=== PATIENT | male | born 1930 | race African-American/Black ===

== ENCOUNTER 2019-08-14 12:41 | Inpatient (IN) | payer OTHER ==
[~2019-08-14] VITALS: Ht 193 cm; Wt 98.9 kg
--- NOTE | ~2019-08-14 | H ---
[facility] [place] [address] HISTORY AND PHYSICAL Name: HEATHER SHAW Room #: 353-P ADM IN M.R.#: [id number] Admission: 08/14/19 Attend Phys: Tete Marquez MD Discharge: Date of : [birth year] Report #: [id number] THIS REPORT FOR: //name// CC: ANEL physician/PCP Tete BENSON PCP DATE OF SERVICE: 08/14/2019 CHIEF COMPLAINT: Swelling in the legs. HISTORY OF PRESENT ILLNESS: The patient is a very pleasant 89-year-old gentleman who started having bilateral lower extremity pain for last couple of days and swelling started to be getting worse and so patient's son took him to [facility] yesterday and the patient was diagnosed with bilateral lower extremity DVT and was started on heparin; however, because the hospital was full and he had to wait in the Emergency Room for 9 hours, the patient got very upset and left the hospital and went home to sleep. His son talked him into coming to the hospital and getting the workup done again and the patient is brought here. He is very pleasant, however, is not very keen on giving much of the history and informs his daughter to update me about what has been going on. The patient denied any hematuria, hematochezia, melena, cough, hemoptysis. Denies any recent weight loss or weight gain. The patient informs me that he has not seen a physician for greater than 7-10 years, last time he saw anyone was definitely in 1998, then he was admitted to [facility] and had cardiac arrest and apparently was told to have coronary artery disease. However, this undermines that 7 years ago, he did have a blood clot and he was treated for that as well. The patient was told at [facility] that he had bilateral lower extremity DVT as well as urinary tract infection. The patient comes here for further management and he informs me that he is going to stay in the hospital until his treatment is completely done. He has had hot flashes, fever or chills, but no dizziness, lightheadedness, no nausea or vomiting or diarrhea. The patient denies any weakness or numbness of any part of the body. He otherwise is feeling fine and other than leg swelling and dysuria, frequency, urgency of urination and low-grade fever and sweats or feeling hot, the patient does not have any other symptoms. PAST MEDICAL HISTORY: Significant for: 1. Coronary artery disease. 2. Cardiac arrest in 1996. 3. Dementia. 4. Prior history of DVT. 5. Lack of medical care. 6. Possible stroke in the past. ALLERGIES: The patient [place] [address] HISTORY AND PHYSICAL Name: HEATHER SHAW Room #: 353-P ADM IN M.R.#: [id number] Admission: 08/14/19 Attend Phys: Tete Marquez MD Discharge: Date of : [birth year] Report #: [id number] CURRENT MEDICATIONS: None. His emergency contact is his son, Dean Navarrete and number is [phone]. PERSONAL AND SOCIAL HISTORY: The patient smokes about 1-2 cigarettes per day. According to the son, the patient himself informs me that he started smoking at 18 years of age and had maybe half pack per day or less, but did not consider himself as a heavy smoker. He did drink alcohol, but he now takes it rarely. Denies any recreational drug use and he lives at home alone and wishes to be full code. PAST SURGICAL HISTORY: The patient has had no surgeries in the past. FAMILY HISTORY: The patient's both sides of the family. Father and mother has positive history of diabetes, hypertension, coronary artery disease and blood clots. REVIEW OF SYSTEMS: Ten point review of system was done. Please see HPI above. PHYSICAL EXAMINATION: VITAL SIGNS: Temperature 36.3, heart rate 61, respirations 18, blood pressure 171/107 and pulse oximeter 100% on room air. GENERAL: Lean and thin, tall gentleman who is able to transfer himself from bed to chair and chair to bed without any assistance and is in no distress at all. HEENT: Normocephalic, atraumatic. Pupils are equally round and reactive to light. Extraocular muscle movements are intact. Conjunctivae are clear. Sclerae are nonicteric. The patient is wearing dark sunglasses, which he can easily take off once the lights are turned off, but absolutely denies any photophobia and he always has had sunglasses on all the time. Oropharynx clear. Uvula midline. Angle of mouth symmetrical. NECK: Supple. HEART: S1, S2, regular. No murmur, no S3, no S4. LUNGS: Clear to auscultation bilaterally with distant breath sounds noted bilaterally, symmetrical chest expansion present. The patient has no chest wall tenderness noted. ABDOMEN: Soft, nontender, nondistended, normal active bowel sounds. EXTREMITIES: 1+ pitting edema noted both lower extremities. NEUROLOGIC: Nonfocal. LABORATORY DATA: WBC is 3800, hemoglobin 11.5, hematocrit 37.2 and platelet count is 124,000 low. PTT after in the ER the patient received heparin is 91.2. Chemistries indicate sodium 138, potassium 3.6, chloride 102, bicarbonate 29, anion gap 7, BUN 28, creatinine 1.4, GFR 58, glucose 126, calcium 9.2, total bilirubin 0.4, AST 16, ALT 18, alkaline phosphatase 60. Troponin less than 0.06. Urinalysis clear with 6-15 wbc's per high power field with trace blood, [facility] [address] [place] [address] HISTORY AND PHYSICAL Name: VALERIAHEATHER Room #: 353-P ADM IN M.R.#: [id number] Admission: 08/14/19 Attend Phys: Tete Marquez MD Discharge: Date of : [birth year] Report #: [id number] negative nitrites. The patient does have 1+ leukocyte esterase positive and 1-9 bacteria seen. RADIOLOGICAL STUDIES: The patient had CTA chest PE protocol. On T12 vertebral body, the patient has a large ovoid sclerotic lesion, measuring 2.1 cm that is suspicious for metastatic disease and there are 2 additional small sclerotic foci present in the left 5th and right 7th rib as well. Additional upper abdominal findings include cholelithiasis and colonic diverticulosis, no CT evidence of pulmonary embolism or acute cardiopulmonary was noted. Ultrasound of the bilateral lower extremity was done, which indicates bilateral leg partially occlusive thrombus in the distal external iliac vein, common femoral vein, partially occlusive thrombus in the left mid to distal superficial vein and popliteal vein noted. A chest x-ray was done with mild bibasilar non-consolidative interstitial infiltrates or early pneumonitis or interstitial edema and normal heart size noted. ASSESSMENT AND PLAN: 1. New onset bilateral lower extremity deep venous thrombosis. The patient has received heparin bolus in the Emergency Room and drip has been started in the ER. I plan to continue the heparin overnight. We will monitor platelet counts closely as the patient's platelet count is 124 only and we will go ahead and consult hog confinement system manager/oncologist as the patient had a second episode of DVT. There has not been any recent travel or surgery or any inciting event; however, the patient has received Heparin for 2 days in a row, so we will not be able to do a hypercoagulable workup except genetic studies and also the patient has T12 sclerotic lesion. We will go ahead and get CT scan of abdomen and pelvis for looking for primary. 2. Urinary tract infection. The patient has no known drug allergies, so we will go ahead and start Rocephin for a urinary tract infection. We will go ahead and check PSA even though the patient is 89 years old, since we are doing metastatic disease workup, we will look for primary. Also discussed with the patient about if he has gotten any colonoscopy and he is unable to recall if he had any. The patient does not really like going seeing the doctors and therefore has multiple. 3. Microscopic hematuria, likely associated with urinary tract infection, but we will go ahead and get renal ultrasound as a part of workup and will do sed rate, C-reactive protein and serum protein electrophoresis. Plan of care was discussed with the patient and his son and the patient wishes to be full code. Order has been written. 4. Benign prostatic hypertrophy. Continue Flomax and Proscar. 5. Coronary artery disease. The patient has had cardiac reflex. We will go ahead and get an echocardiogram tomorrow morning as the patient's chest x-ray indicates interstitial pneumonitis versus pulmonary edema. [facility] [address] [place] [address] HISTORY AND PHYSICAL Name: HEATHER SHAW Room #: 353-P ADM IN M.R.#: [id number] Admission: 08/14/19 Attend Phys: Tete Marquez MD Discharge: Date of : [birth year] Report #: [id number] 6. Cholelithiasis, asymptomatic. If patient does develop symptoms, then we would go ahead. 7. Questionable history of cerebrovascular accident. The patient does not have any residual neurological deficit, but apparently has been told to have had stroke before. The patient has review of systems negative for such symptoms; however, we will consider getting an MRI of the brain if the patient has any symptoms. 8. Thrombocytopenia. Heparin may not be the best choice of drug; however, before starting Eliquis or Xarelto, it would be advisable to get metastatic carcinoma workup completed in case we need to get the interventional radiologist, who did the biopsy; however, we will wait for the feedback from Hematology/Oncology team. By: [id number] Tete Marquez MD /nt
[2019-08-14 12:44] VITALS: BP 121/67; BP 181/51
[2019-08-14 13:27] LABS: URINE BILIRUBIN NEGATIVE (Negative); URINE BLOOD TRACE (Negative); URINE CLARITY CLEAR; URINE COLOR YELLOW; URINE GLUCOSE-RANDOM* NEGATIVE (Negative); URINE KETONES NEGATIVE (Negative); URINE NITRITE-REFLEX NEGATIVE (Negative); URINE PROTEIN (DIPSTICK) NEGATIVE (Negative); URINE SPECIFIC GRAVITY >= 1.030 (1.005-1.035); URINE UROBILINOGEN 0.2 E.U./dl (0.2-1.0)
[2019-08-14 13:28] LABS: URINE LEUKOCYTES-REFLEX 1+ (Negative)
[2019-08-14 13:37] LABS: BACTERIA-REFLEX 1-9 Few /HPF (None Seen); CASTS None Seen /LPF (None Seen); CRYSTALS None Seen /LPF (None Seen); SQUAMOUS None Seen /LPF (0-3); URINE RBC None Seen /HPF (0-2); URINE WBC-REFLEX 6-15 Few /HPF (0-5)
[2019-08-14 13:43] LABS: HEMOGLOBIN 11.9 gm/dL (14.0-18.0); RDW 15.1 % (10.5-14.5); WBC 3.1 thou/uL (4.0-11.0)
[2019-08-14 13:45] LABS: HEMATOCRIT 38.7 % (42.0-52.0); MCH 22.5 pg (26.0-34.0); MCHC 30.8 g/dL (28.0-37.0); MCV 73.2 fL (80.0-100.0); PLATELET COUNT 134 thou/uL (150-400); RBC 5.29 mil/uL (4.50-6.00)
[2019-08-14 13:52] LABS: CALCIUM 9.2 mg/dL (8.5-10.1); CREATININE 1.4 mg/dL (0.7-1.3); POTASSIUM 3.6 mmol/L (3.5-5.1)
[2019-08-14 13:57] LABS: INR 1.1
[2019-08-14 13:58] LABS: ALBUMIN 3.8 g/dL (3.4-5.0); TOTAL BILIRUBIN 0.4 mg/dL (<0.1-1.0); TOTAL PROTEIN 8.1 g/dL (6.4-8.2)
[2019-08-14 14:33] LABS: ABSOLUTE NEUTROPHILS 1.7 thou/uL (1.4-8.2); POLYCHROMASIA OCCASIONAL
[2019-08-14 14:34] LABS: ANISOCYTOSIS 1+; HYPOCHROMASIA 1+; MICROCYTES 1+
--- NOTE | 2019-08-14 16:32 | EKG ---
[facility] [place] [address] ELECTROCARDIOGRAM REPORT Name: HEATHER SHAW Room #: 170-4 ADM IN M.R.#: [id number] Admission: 08/14/19 Attend Phys: Tete Marquez MD Discharge: Date of : [birth year] Report #: [id number] THIS REPORT FOR: cc: NO FAMILY PHYSICIAN or PCP FAM - No family physician/PCP Twan Haji MD ~ THIS REPORT FOR: //name// [facility] ED Test Date: 2019-08-14 Test Time: 13:26:08 Pat Name: HEATHER SHAW Department: Room: [facility] Gender: M Whipper: delmy : 1930 Requested By: Axel Castillo Order Number: [id number] MD: Twan Haji Measurements Intervals Alborn Rate: 67 P: 70 CT: 239 QRS: -49 QRSD: 108 T: -50 QT: 449 QTc: 474 Interpretive Statements Sinus rhythm Multiform ventricular premature complexes Prolonged CT interval RSR' in V1 or V2, right VCD or RVH Inferior infarct, age indeterminate No previous ECG available for comparison Electronically Signed On 08-14-2019 16:31:28 GREEN BUILDING DESIGN SPECIALIST by Twan Haji [email or web address] <ELECTRONICALLY SIGNED> By: Twan Haji MD 08/14/19 1631 [id number] Twan Haji MD /EPI
[2019-08-14 17:10] VITALS: BP 168/79
[2019-08-14 17:29] VITALS: BP 177/107
--- NOTE | 2019-08-14 18:16 | NUR ---
ASSUMED CARE OF PT ON ARRIVAL TO UNIT AT APPROX 1750. PT AOX3 IN NO ACUTE DISTRESS. FAMILY AT BEDSIDE. DENIES PAIN TO BLE. REPORTS URINARY FREQUENCY THAT HAS BEEN GOING ON FOR YEARS. DENIES OTHER SYMPTOMS. HEPARIN GTT INFUSING PER ORDER. LAB DRAW SCHEDULED FOR 1800. FALL PRECAUTIONS IN PLACE.
[2019-08-14 18:35] LABS: HEMATOCRIT 37.2 % (42.0-52.0); HEMOGLOBIN 11.5 gm/dL (14.0-18.0); MCH 22.7 pg (26.0-34.0); MCV 73.1 fL (80.0-100.0); RBC 5.09 mil/uL (4.50-6.00); RDW 15.4 % (10.5-14.5); WBC 3.8 thou/uL (4.0-11.0)
[2019-08-14 19:35] VITALS: BP 143/61
[2019-08-15 00:44] LABS: HEMATOCRIT 36.9 % (42.0-52.0); HEMOGLOBIN 11.6 gm/dL (14.0-18.0); MCH 22.8 pg (26.0-34.0); MCHC 31.3 g/dL (28.0-37.0); MCV 72.7 fL (80.0-100.0); RBC 5.08 mil/uL (4.50-6.00); WBC 3.6 thou/uL (4.0-11.0)
[2019-08-15 03:54] LABS: HEMATOCRIT 36.6 % (42.0-52.0); HEMOGLOBIN 11.3 gm/dL (14.0-18.0); MCH 22.6 pg (26.0-34.0); MCHC 30.9 g/dL (28.0-37.0); MCV 73.2 fL (80.0-100.0); PLATELET COUNT 118 thou/uL (150-400); RBC 5.01 mil/uL (4.50-6.00); RDW 14.8 % (10.5-14.5); WBC 3.5 thou/uL (4.0-11.0)
[2019-08-15 04:00] LABS: ALBUMIN 3.4 g/dL (3.4-5.0); CALCIUM 8.2 mg/dL (8.5-10.1); CREATININE 1.2 mg/dL (0.7-1.3); PHOSPHORUS 3.4 mg/dL (2.5-4.9); POTASSIUM 4.1 mmol/L (3.5-5.1); TOTAL BILIRUBIN 0.6 mg/dL (<0.1-1.0); TOTAL PROTEIN 7.2 g/dL (6.4-8.2)
[2019-08-15 04:32] VITALS: BP 159/84
[2019-08-15 05:26] LABS: ANISOCYTOSIS 1+; HYPOCHROMASIA 2+; MICROCYTES 2+; PLATELET ESTIMATE DECREASED; POIKILOCYTOSIS 1+; SCHISTOCYTES 1+; TARGET CELLS 1+
[2019-08-15 07:46] VITALS: BP 156/70
--- NOTE | 2019-08-15 09:00 | 2DMMODE ---
[facility] [place] [address] 2 D/M-MODE ECHOCARDIOGRAM Name: HEATHER SHAW Room #: 353-P ADM IN M.R.#: [id number] Admission: 08/14/19 Attend Phys: Tete Marquez MD Discharge: Date of : [birth year] Report #: [id number] THIS REPORT FOR: cc: NO FAMILY PHYSICIAN or PCP FAM - No family physician/PCP Candido Sanchez MD [facility] ~ APPROVED REPORT Study performed: 08/15/2019 08:17:57 EXAM: Comprehensive 2D, Doppler, and color-flow Echocardiogram Patient Location: Echo lab Room #: 353 Status: routine BSA: 2.12 HR: 56 bpm BP: 159/84 mmHg Rhythm: NSR Indications Question pulmonary edema on Xray. Hx: CAD. 2D Dimensions RVDd: 40.36 mm IVSd: 10.42 (7-11mm) LVOT Diam: 24.99 (18-24mm) LVDd: 53.51 mm PWd: 10.82 (7-11mm) Ascending Ao: 40.38 (22-36mm) LVDs: 42.80 (25-40mm) Aortic Root: 36.50 mm Volumes Left Atrial Volume (Systole) Single Plane 4CH: 77.98 mL Single Plane 2CH: 85.80 mL LA ESV Index: 45.00 mL/m2 Aortic Valve AoV Peak Jersey.: 1.10 m/s AO Peak Gr.: 4.88 mmHg LVOT Max P.23 mmHg LVOT Max V: 0.55 m/s VITALIY Vmax: 2.46 cm2 Mitral Valve E/A Ratio: 1.[address] [facility] [address] [place] [address] 2 D/M-MODE ECHOCARDIOGRAM Name: HEATHER SHAW Room #: 353-P [facility] IN .R.#: [id number] Admission: 08/14/19 Attend Phys: Tete Marquez, Discharge: Date of : [birth year] Report #: [id number] MV Decel. Time: 277.28 ms MV E Max Jersey.: 0.49 m/s MV A Jersey.: 0.34 m/s MV PHT: 80.41 ms IVRT: 93.43 ms Pulmonary Valve PV Peak [place].: 0.86 m/s PV Peak Gr.: 2.93 mmHg Pulmonary Vein P Vein S: 0.39 m/s P Vein D: 0.51 m/s P Vein S/D Ratio: 0.76 Tricuspid Valve TR Peak Jersey.: 3.20 m/s RAP Estimate: 5.00 mmHg TR Peak Gr.: 41.00 mmHg PA Pressure: 56.00 mmHg Left Ventricle The left ventricle is normal size. There is global hypokinesis of the left ventricle. There is normal left ventricular wall thickness. Left ventricular systolic function is moderately decreased. LVEF is 35-40%. Moderate diastolic dysfunction is present. Right Ventricle The right ventricle is normal size. The right ventricular systolic function is normal. Atria Left atrium is moderately dilated. Right atrium is mildly dilated. Aortic Valve The aortic valve is normal in structure. Trace aortic regurgitation. There is no aortic valvular stenosis. Mitral Valve The mitral valve is normal in structure. Mild mitral regurgitation. No evidence of mitral valve stenosis. Tricuspid Valve The tricuspid valve is normal in structure. Mild to moderate tricuspid regurgitation. Estimated PAP is 55-60mmHg. Pulmonic Valve [facility] [address] [place] [address] 2 D/M-MODE ECHOCARDIOGRAM Name: SHARIFASHLEIGHHEATHER Room #: 353-P [facility] IN M.R.#: [id number] Admission: 08/14/19 Attend Phys: Tete Marquez, Discharge: Date of : [birth year] Report #: [id number] The pulmonary valve is normal in structure. Moderate pulmonic regurgitation. Great Vessels The aortic root is normal in size. 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 IVC is normal in size and collapses >50% with inspiration. Pericardium There is no pericardial effusion. <Conclusion> Left ventricular systolic function is moderately decreased. There is global hypokinesis of the left ventricle. LVEF is 35-40%. Moderate diastolic dysfunction is present. Left atrium is moderately dilated. The aortic valve is normal in structure. Trace aortic regurgitation. The mitral valve is normal in structure. Mild mitral regurgitation. Mild to moderate tricuspid regurgitation. Estimated pulmonary artery pressure of 55-60mmHg. 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 There is no pericardial effusion. <ELECTRONICALLY SIGNED> By: Candido Sanchez MD, FACC 08/15/19858 8 8 Candido Sanchez MD, FACC /INF
--- NOTE | 2019-08-15 15:28 | NUR ---
INITIAL ASSESSMENT: SW reviewed chart and spoke with nursing and attending physician. Pt was admitted from home due to DVT. Pt is currently on heparin. Pt was at [facility] yesteray and did not wait to be admitted. Pt with T12 lesion. Hem/onc consulted. SW met with pt at bedside. Introduced role of SW. Pt is alert/orientated. Pt reports he lives at home with family. Prior to admission, pt was using a cane for ambulation. Pt has 5-6 steps to enter the home. Pt states that he does not have to navigate the steps inside his home. Pt's family will assist him as needed. Pt states his plan is to go home when medically stable. Pt does not have a PCP and declines list of providers for review. SW is following to assist as needed with discharge planning.
[2019-08-15 15:41] VITALS: BP 156/89
--- NOTE | 2019-08-15 19:33 | NUR ---
PATIENT ATTEMPTED TO LEAVE UNIT STATING HE HAS TO GO HOME AND TAKE CARE OF A FEW THINGS. STATES SOMEONE MAY TRY TO BREAK INTO HIS HOUSE AND HE HAS TO GO AND CARE OF IT. HE IS ALERT ORIENTED X2. USES URINAL. FAMILY CALLED AND THEY STATE THEY WILL BE HERE TO SEE FATHER. BUT NEVER SHOWED UP.
[2019-08-15 19:50] VITALS: BP 181/89
--- NOTE | 2019-08-16 03:52 | NUR ---
ASSUMED CARE OF PATIENT AT 1900. VSS, AFEBRILE. VERY IMPULSIVE, DOES NOT CALL OUT. JUMPS OUT OF BED, STATES URINARY FREQUENCY. PT REMOVED IV. NEW ONE PLACED. DENIES PAIN, SOA OR N/V. IS VERY FORGETFUL. WORKING TOWARDS POC GOALS.
[2019-08-16 04:38] VITALS: BP 177/89
[2019-08-16 08:00] VITALS: BP 167/87
[2019-08-16 08:45] LABS: ABSOLUTE NEUTROPHILS 1.6 thou/uL (1.4-8.2); WBC 3.7 thou/uL (4.0-11.0)
[2019-08-16 08:47] LABS: BASOPHILS 1.7 % (0.0-2.0); HEMATOCRIT 41.8 % (42.0-52.0); HEMOGLOBIN 13.1 gm/dL (14.0-18.0); LYMPHOCYTES 41.9 % (24.0-44.0); MCH 22.9 pg (26.0-34.0); MCHC 31.3 g/dL (28.0-37.0); MCV 73.1 fL (80.0-100.0); MONOCYTES 9.9 % (1.0-8.0); POLYS 42.5 % (36.0-66.0); RBC 5.72 mil/uL (4.50-6.00)
[2019-08-16 08:58] LABS: ALBUMIN 4.2 g/dL (3.4-5.0); CALCIUM 9.5 mg/dL (8.5-10.1); CREATININE 1.3 mg/dL (0.7-1.3); POTASSIUM 3.9 mmol/L (3.5-5.1); TOTAL BILIRUBIN 0.6 mg/dL (<0.1-1.0); TOTAL PROTEIN 8.9 g/dL (6.4-8.2)
[2019-08-16 09:11] LABS: ANISOCYTOSIS 1+; HYPOCHROMASIA 1+; MICROCYTES 1+; PLATELET COUNT 139 thou/uL (150-400); POIKILOCYTOSIS 1+; TARGET CELLS FEW; TEARDROPS OCCASIONAL
[2019-08-16 09:12] LABS: LARGE PLATELETS OCCASIONAL; PLATELET ESTIMATE SLIGHTLY DECREASED
[2019-08-16 12:04] VITALS: BP 167/87
--- NOTE | 2019-08-16 15:22 | NUR ---
PATIENT REMAIN AGITATIVE AND KEEPS ATTEMPTING TO LEAVE. HE PUT ON HIS CLOTHS, AND SHOES BY HIMSELF. HE ALSO ATE BREAKFAST AND LUNCH INDEPENDENTLY. PATIENT HOWEVER IS QUITE CONFUSED. HE DOES NOT REMEMBER WHAT DAY IT IS. HE DOES NOT REMEMBER WHO THE PRESIDENT IS OR WHAT TIME IT IS. FAMILY HERE AND NOT HELPING. HE IGNORS THEM AND TRY TO LEAVE ANYWAYS. SECURITY CALLED AND HE WILL TEMPORARY GO BACK TO BED. HE KEEPS ON TAKING OFF HIS IV AND HENCE HEPARINE NOT INFUSING DIRECTED. DR WESLEY NOTIFIED. HE WILL BE DISCHARGE HOME AT THIS TIME PER FAMILY WISHES. WILL CONT WIHT PLNA OF CARE.
[2019-08-16] MEDS ORDERED: FLOMAX0.4 MG PO (15:54)
[2019-08-16] MEDS ORDERED: ELIQUIS5 MG PO (15:54)
[2019-08-16] MEDS ORDERED: PEPCID20 MG PO (15:55)
[2019-08-16] MEDS ORDERED: HYDRALAZINE 10M10 MG PO (15:56)
[2019-08-16 16:21] VITALS: BP 167/87
[2019-08-18 15:12] LABS: GLOBULIN TOTAL 3.3 g/dL (2.2-3.9); M-SPIKE Not Observed g/dL (Not Observed)
== END 2019-08-16 17:06 | disposition home or self-care (01) | DRG 300 ==
LOC: ER 12:41 → 3W 14:43 → EROBS 14:43 → 3W 17:10
PROVIDERS: Physician Assistant; ADMIT Internal Medicine
DX: I82.423 Acute embolism and thrombosis of iliac vein, bilateral (principal); N39.0 Urinary tract infection, site not specified; N17.9 Acute kidney failure, unspecified; D61.818 Other pancytopenia; I82.413 Acute embolism and thrombosis of femoral vein, bilateral; F03.90 Unspecified dementia, unspecified severity, without behavioral disturbance, psychotic disturbance, mood disturbance, and anxiety; I25.10 Atherosclerotic heart disease of native coronary artery without angina pectoris; R31.29 Other microscopic hematuria; K80.20 Calculus of gallbladder without cholecystitis without obstruction; F17.210 Nicotine dependence, cigarettes, uncomplicated; R29.6 Repeated falls; G47.00 Insomnia, unspecified; G54.3 Thoracic root disorders, not elsewhere classified; N40.1 Benign prostatic hyperplasia with lower urinary tract symptoms; R33.8 Other retention of urine; Z86.74 Personal history of sudden cardiac arrest; Z86.73 Personal history of transient ischemic attack (TIA), and cerebral infarction without residual deficits; Z82.49 Family history of ischemic heart disease and other diseases of the circulatory system; Z83.3 Family history of diabetes mellitus; Z91.81 History of falling; Z71.6 Tobacco abuse counseling
CPT/HCPCS: 10879